=== PATIENT | female | born 1950 | race Caucasian/White ===

== ENCOUNTER → 2019-09-02 07:57 | Outpatient (CLI) | payer MEDICARE, SELFPAY ==
--- NOTE | ~2019-09-02 | US_ITS ---
EXAMINATION: US abdomen complete DATE: 09/02/2019 08:21 INDICATION: Right upper quadrant pain TECHNIQUE: Multiple grayscale and Doppler ultrasound images of the abdomen were obtained. COMPARISON: None available FINDINGS: The head, body, and tail of the pancreas are normal. There is a 1.2 x 1.1 x 1.8 cm hyperec hoic lesion in the left hepatic lobe without evidence of internal vascularity. The liver is otherwise normal with normal echogenicity and echotexture. No surface nodularity. Normal hepatopetal flow in t he main portal vein. The gallbladder is normal with no abnormal wall thickening, pericholecystic flui d or stones. The normal common bile duct measures 3 mm. There was no sonographic Blake sign. The vis ualized portions of the aorta and inferior vena cava are normal. The right kidney measures 9.8 x 4.1 x 5.5 cm. The left kidney measures 10.4 x 4.6 x 4.4 cm. The kidne ys demonstrate normal parenchymal echogenicity. There is no hydronephrosis. The spleen is normal in a ppearance and measures 7.4 cm. IMPRESSION: 1. No sonographic correlate for the patient's symptoms. 2. 1.8 cm hyperechoic lesion of the left hepatic lobe, likely benign in the absence of known malignan cy. Reviewed, dictated and finalized at location A. UCT SUPPORT TECHNICIAN IMPRESSION: 1. No sonographic correlate for the patient's symptoms. 2. 1.8 cm hyperechoic lesion of the left hepatic lobe, likely benign in the abs ence of known malignancy.
== END ==
PROVIDERS: PCP Family Medicine; Visit Provider Family Medicine
DX: R10.11 Right upper quadrant pain (principal)
CPT/HCPCS: 76700

== ENCOUNTER 2019-09-15 07:02 | Outpatient (CLI) | payer MEDICARE, SELFPAY ==
--- NOTE | ~2019-09-15 | NM_ITS ---
EXAMINATION: NM hepatobiliary w pharm DATE: 09/15/2019 09:20 INDICATION: Unspecified abdominal pain. COMPARISON: Ultrasound 09/02/2019 TECHNIQUE: 5.3 mCi Tc-99m mebrofenin (Choletec) was administered intravenously. Scintigraphic images of the abdomen were obtained for one hour. Then, 1.2 mcg sincalide (Kinevac) IV was administered, an d imaging was continued for 30 minutes. FINDINGS: There is normal clearance of radiotracer from the blood pool. There is homogeneous tracer u ptake by the liver. Activity progresses to the bowel and gallbladder. Gallbladder ejection fraction (GBEF) was 72%. Note that most patients with gallbladder dysfunction have GBEF < 35%, which overlaps with the broad normal range of 10-90%. IMPRESSION: 1. Normal hepatobiliary scintigraphy. Reviewed, dictated and finalized at location A. WRITER
== END 2019-09-15 07:03 | disposition home or self-care (01) ==
LOC: ANHIMG 07:07
PROVIDERS: PCP Family Medicine; Visit Provider Family Medicine
DX: R10.9 Unspecified abdominal pain (principal)
CPT/HCPCS: 78227; A9537; J2805

== ENCOUNTER 2019-10-25 18:31 | Emergency (ER) | payer MEDICARE, SELFPAY ==
--- NOTE | ~2019-10-25 | XR_ITS ---
EXAMINATION: XR knee LT 3V DATE: 10/25/2019 18:43 INDICATION: Left knee pain TECHNIQUE: Three views of the left knee were obtained. COMPARISON: None. FINDINGS: Alignment is normal. No fracture or osteochondral lesion. There is mild tricompartmental os teoarthritis characterized by tiny marginal osteophytes. No joint effusion/synovitis. Soft tissues a re unremarkable. IMPRESSION: 1. No acute osseous abnormality. Reviewed, dictated and finalized at location A.
[2019-10-25 18:33] VITALS: BP 148/64; PULSE 93; RESP 18; TEMP 36.4; O2SAT 97
--- NOTE | 2019-10-25 18:38 | ED.GENADULT ---
HPI - General Adult General Chief complaint: Extremity Injury, Lower Stated complaint: left knee pain Time Seen by Provider: 10/25/19 18:34 Source: patient Mode of arrival: ambulatory Limitations: no limitations History of Present Illness HPI narrative: Patient is a 69-year-old female who presents with left knee pain noting that she was ambulating and felt a pop in the left knee with resultant aching pain in the knee joint has had pain in this knee prior denies other injuries or complaints does not take anything for her symptoms presents in no distress Related Data Home Medications Medication Instructions Recorded Confirmed metformin 500 mg tablet 500 mg PO BID tablet 07/16/19 milnacipran 50 mg tablet 50 mg PO BID 07/16/19 omeprazole 40 mg capsule,delayed 40 mg PO DAILY 07/16/19 release rosuvastatin 5 mg tablet 5 mg PO DAILY 07/16/19 acetaminophen 500 mg capsule 500 mg PO Q6H PRN 07/23/19 aspirin 81 mg tablet,delayed 81 mg PO DAILY 07/23/19 release cyanocobalamin (vitamin B-12) 500 500 mcg PO BID tablet 07/23/19 mcg tablet Allergies Allergy/AdvReac Type Severity Reaction Status Date / Time diclofenac Allergy Unknown unknown Verified 10/25/19 18:35 dimenhydrinate [Dramamine] Allergy Unknown unknown Verified 10/25/19 18:35 meclizine Allergy Unknown unknown Verified 10/25/19 18:35 metformin Allergy Unknown Nausea Verified 10/25/19 18:35 Sulfa (Sulfonamide Allergy Unknown Unknown Verified 10/25/19 18:35 Antibiotics) STEROIDS AdvReac Intermediate FACIAL Uncoded 10/25/19 18:35 DERMATITIS Review of Systems Review of Systems: Narrative: CONSTITUTIONAL: Denies chills, or sweats. SKIN: Denies bruising or swelling MUSCULOSKELETAL: Positive for left knee pain NEUROLOGIC: Denies numbness, or weakness. PMFSH Past Medical History Medical History Hypodense mass of liver () 1.8cm hypoechoic mass considered benign Restless legs syndrome Social History Social History Smoking status: Never smoker Alcohol intake: never Exam Narrative: Exam Narrative: GENERAL: Well-appearing, well-nourished, and in no acute distress. HEAD: Normocephalic, atraumatic. EXTREMITIES: Tenderness of the left knee no deformity noted SKIN: Warm, dry, no rash. NEURO: No focal deficits. Alert and oriented x3. Neurovascularly intact PSYCH: Normal mood and affect. Course Course Emergency Course: Patient in the room in no distress aware of case findings treatment plan and diagnosis agreeing to follow-up as directed Vital Signs Vital signs: Vital Signs Temperature 97.5 F L 10/25/19 18:33 Pulse Rate 93 10/25/19 18:33 Respiratory Rate 18 10/25/19 18:33 Blood Pressure 148/64 H 10/25/19 18:33 Pulse Oximetry 97 10/25/19 18:33 Temperature 97.5 F L 10/25/19 18:33 Pulse Rate 93 10/25/19 18:33 Respiratory Rate 18 10/25/19 18:33 Blood Pressure 148/64 H 10/25/19 18:33 Pulse Oximetry 97 10/25/19 18:33 Medical Decision Making MDM Narrative Medical decision making narrative: Patients injury or pain is consistent with musculoskeletal etiology. No signs of neurological or vascular compromise on exam. Compartments and tisues are soft without signs of compartment syndrome. Pain is felt appropriate for further evaluation on an outpatient basis. Vital Signs Vital Signs: Vital Signs Temperature 97.5 F L 10/25/19 18:33 Pulse Rate 93 10/25/19 18:33 Respiratory Rate 18 10/25/19 18:33 Blood Pressure 148/64 H 10/25/19 18:33 Pulse Oximetry 97 10/25/19 18:33 Temperature 97.5 F L 10/25/19 18:33 Pulse Rate 93 10/25/19 18:33 Respiratory Rate 18 10/25/19 18:33 Blood Pressure 148/64 H 10/25/19 18:33 Pulse Oximetry 97 10/25/19 18:33 Discharge Plan Discharge Clinical Impression: Acute pain of left knee Patient Disposition: Home, Self-Care Conditi
== END 2019-10-25 19:07 | disposition home or self-care (01) ==
PROVIDERS: Emergency Provider Emergency Medicine; PCP Family Medicine
DX: M25.562 Pain in left knee (principal); G25.81 Restless legs syndrome; Z79.84 Long term (current) use of oral hypoglycemic drugs; Z79.82 Long term (current) use of aspirin
CPT/HCPCS: 73562; 99283

== ENCOUNTER 2020-01-04 08:22 | Outpatient (CLI) | payer MEDICARE, SELFPAY ==
--- NOTE | ~2020-01-04 | US_ITS ---
US right upper quadrant INDICATION: Follow-up liver mass. PROCEDURE: Realtime right upper abdominal ultrasound. COMPARISON: Ultrasound dated 09/02/2019 FINDINGS: The pancreas is normal without focal mass or pancreatic ductal dilation. There is a hypere choic mass of the liver measuring 2 x 1.7 x 0.8 cm possibly slightly increased in size compared with prior examination. Correlation with dynamic contrast-enhanced CT or MRI is recommended. There is norm al directional flow in the portal vein. The gallbladder is normal without stones, gallbladder wall thickening or pericholecystic fluid. Comm on bile duct measures 4 mm. No sonographic Blake's sign. IMPRESSION: 1: Possible enlargement of hyperechoic liver mass near the kristi hepatis measuring 2.0 x 1.7 x 0.8 cm compared with 1.8 x 1.2 x 1.1 cm on prior study. Consider correlation with dynamic contrast-enhanced CT or MRI. Reviewed, dictated and finalized at location A. IMPRESSION: 1: Possible enlargement of hyperechoic liver mass near the kristi hepatis measur ing 2.0 x 1.7 x 0.8 cm compared with 1.8 x 1.2 x 1.1 cm on prior study. Conside r correlation with dynamic contrast-enhanced CT or MRI.
== END 2020-01-04 08:23 | disposition home or self-care (01) ==
PROVIDERS: PCP Family Medicine; Visit Provider Family Medicine
DX: R16.0 Hepatomegaly, not elsewhere classified (principal)
CPT/HCPCS: 76705

== ENCOUNTER 2020-01-29 09:34 | Outpatient (CLI) | payer MEDICARE, SELFPAY ==
--- NOTE | ~2020-01-29 | MR_ITS ---
EXAMINATION: MR abdomen wo/w con DATE: 01/29/2020 10:59 INDICATION: Enlarging hyperechoic liver lesion on prior ultrasound TECHNIQUE: Magnetic resonance imaging (MRI) of the abdomen was performed without and with 12 mL Multi moose intravenous contrast. Sequences included coronal T2-weighted SS-FSE, coronal and axial FS 2D-F IESTA, axial STIR FSE, axial T2-weighted SS-FSE, axial T2-weighted FS SS-FSE, axial diffusion-weighte d SE, axial dual-echo T1-weighted FSPGR, and axial and coronal T1-weighted LAVA. Postcontrast axial T 1-weighted LAVA images were obtained in a time course. Postcontrast coronal T1-weighted LAVA images w ere obtained. COMPARISON: None. FINDINGS: Heart size is normal. No pericardial or pleural effusion. There is approximately 1.9 x 1.1 cm region of focal hepatic steatosis corresponding in location and configuration to the hyperechoic lesion on p rior ultrasound in segment IVb of the liver abutting the kristi hepatis which demonstrates decreased s ignal on fat saturated images and on opposed phase images. No other hepatic lesions identified. Gallb ladder is normal. No intra or extra hepatic biliary ductal dilation. Pancreas, spleen, bilateral adre nal glands and kidneys are normal. Layering air-fluid level within a 2.5 cm diverticulum arising from the fundus of the stomach. Visual is portions of the bowels are unremarkable. No pathologically enla rged abdominal lymphadenopathy. Mild lumbar spondylosis. Normal bone marrow signal throughout. IMPRESSION: 1. Hepatic lesion of concern on prior ultrasound corresponds to a 1.9 x 1.1 cm region of focal hepati c steatosis in segment IVb of the liver. Reviewed, dictated and finalized at location A. IMPRESSION: 1. Hepatic lesion of concern on prior ultrasound corresponds to a 1.9 x 1.1 cm region of focal hepatic steatosis in segment IVb of the liver.
[2020-01-29 10:49] LABS: Estimated Glomerular Filt Rate > 60
== END 2020-01-29 09:35 | disposition home or self-care (01) ==
LOC: ANHIMG 09:34
PROVIDERS: PCP Family Medicine; Visit Provider Family Medicine
DX: R16.0 Hepatomegaly, not elsewhere classified (principal)
CPT/HCPCS: 36415; 74183; A9577

== ENCOUNTER 2020-06-17 14:23 | Outpatient (CLI) | payer MEDICARE, SELFPAY ==
--- NOTE | ~2020-06-17 | MM_ITS ---
EXAMINATION: MM screening [facility] BI w elle HISTORY: Screening mammogram TECHNIQUE: Craniocaudal and mediolateral oblique 3-D tomosynthesis images were obtained and synthetic 2-D images were generated. CAD analysis was submitted and interpreted. COMPARISON: 05/01/2019, 04/24/2018, 04/18/2017 BREAST PARENCHYMAL COMPOSITION: There are scattered areas of fibroglandular density. FINDINGS: Scattered benign-appearing calcifications are present. There is no evidence of suspicious m ass, calcification, or architectural distortion to suggest malignancy in either breast. There has bee n no suspicious interval change. IMPRESSION: 1. No mammographic evidence of malignancy. 2. Recommend routine screening mammography in one year. BI-RADS Category 2: Benign finding(s). Reviewed, dictated and finalized at location A.
--- NOTE | ~2020-06-17 | DEXA_ITS ---
Bone Density Report Name: Gem Hearn Age: 70 Sex: Female Ethnicity: White Date of : 1950 Indication: postmenopausal; hysterectomy; Referring Provider: Yovany Gallegos Study: Bone densitometry was performed. Exam Date: June 17, 2020 Accession number: [id number] Bone Density: Region BMD T-score Z-score Classification AP Spine (L1-L4) 1.117 0.6 2.9 Normal Femoral Neck (Left) 0.735 -1.0 0.9 Normal Total Hip (Left) 0.851 -0.7 0.9 Normal Total Hip Bilateral Avg 0.861 -0.7 0.9 Normal Femoral Neck (Right) 0.719 -1.2 0.7 Osteopenia Total Hip (Right) 0.869 -0.6 1.0 Normal World Health Organization criteria for BMD impression classify patients as: Normal (T-score at or above -1.0), Osteopenia (T-score between -1.0 and -2.5), or Osteoporosis (T-score at or below -2.5). 10-year Fracture Risk(1): Major Osteoporotic Fracture 9.8% Hip Fracture 1.3% Reported Risk Factors: [place] (), Neck BMD=0.719, BMI=26.1 (1) FRAX(R) Version 3.08. Fracture probability calculated for an untreated patient. Fracture probability may be lower if the patient has received treatment. Previous Exams: Region Exam Age BMD T-score BMD Change BMD Change Date g/cm2 vs Baseline vs Previous AP Spine(L1-L4) 06/17/2020 70 1.117 0.6 -0.061(-5.2%)# 0.005(0.4%)# 10/20/2010 60 1.112 0.6 -0.066(-5.6%)* -0.066(-5.6%)* 05/09/2003 52 1.178 1.2 Total Hip(Left) 06/17/2020 70 0.851 -0.7 -0.142(-14.3%) -0.091(-9.7%)# 10/20/2010 60 0.942 0.0 -0.051(-5.1%)* -0.051(-5.1%)* 05/09/2003 52 0.993 0.4 Total Hip(Right) 06/17/2020 70 0.869 -0.6 N/A -1.8%# 10/20/2010 60 0.885 -0.5 N/A N/A 05/09/2003 52 N/A N/A *Denotes significance at 95% confidence level, LSC for AP Spine = 0.022 g/cm2, LSC for Total Hip = 0.027 g/cm2 Clinical Information Provided by Patient: Has the following medical conditions: Hysterectomy Patient maximum height was 59 Menopause Age: 38 No regular weight bearing exercise Drinks caffeinated beverages Onset of menses at age 12 Number of children 3 Impression: The patient has low bone mass, based on the Right Femoral Neck T-score. The patient has an estimated ten-year risk of hip fracture of 1.3% and an estimated ten-year risk of major fracture of 9.8%, based on the WHO FRAX algorithm. No significant bone loss was observed. Discussion: BONE DENSITY IS LOW AT ONE OR
== END 2020-06-17 14:24 | disposition home or self-care (01) ==
LOC: ANHIMG 14:28
PROVIDERS: PCP Family Medicine; Visit Provider Physician Assistant
DX: Z12.31 Encounter for screening mammogram for malignant neoplasm of breast (principal); Z13.820 Encounter for screening for osteoporosis; Z78.0 Asymptomatic menopausal state; M85.851 Other specified disorders of bone density and structure, right thigh; R73.03 Prediabetes; E78.2 Mixed hyperlipidemia; I10 Essential (primary) hypertension; Z51.81 Encounter for therapeutic drug level monitoring; Z79.899 Other long term (current) drug therapy
CPT/HCPCS: 77063; 77067; 77080

== ENCOUNTER 2020-10-18 08:34 | Outpatient (CLI) | payer MEDICARE, SELFPAY ==
--- NOTE | ~2020-10-18 | US_ITS ---
EXAMINATION: US abdomen limited DATE: 10/18/2020 09:13 INDICATION: Follow-up liver lesion TECHNIQUE: Multiple grayscale and Doppler ultrasound images of the abdomen were obtained. COMPARISON: Ultrasound dated 01/04/[address] dated 01/29/2020 FINDINGS: The pancreatic head and body are normal in appearance. The pancreatic tail is not visualized. Sli ght increase in size of a lenticular region of increased hepatic echogenicity along the kristi hepatis which currently measures 3.2 x 2.4 x 1.0 cm, increased from 2.0 x 1.7 x 0.8 cm on the prior study an d with MRI appearance on prior study most consistent with focal hepatic steatosis. No other hepatic l esions identified. Liver has normal echogenicity and contour, with a smooth surface. No intrahepatic biliary duct dilation suspected. Portal venous flow was seen in the hepatopetal, normal direction and has normal Doppler waveform. The gallbladder is normal in appearance. There is no cholelithiasis. T he common bile duct measures 4 mm, which is normal. Sonographic Blake sign was reported as negative by the specification consultant. IMPRESSION: 1. Slight decrease in size of a 3.2 x 2.4 x 1.0 cm hypoechoic region along the gallbladder fossa with prior MRI appearance most consistent with focal hepatic steatosis. Reviewed, dictated and finalized at location B.
== END 2020-10-18 08:35 | disposition home or self-care (01) ==
PROVIDERS: PCP Family Medicine; Visit Provider Family Medicine
DX: R16.0 Hepatomegaly, not elsewhere classified (principal)
CPT/HCPCS: 76705

== ENCOUNTER 2021-03-29 01:55 | Day surgery (SDC) | payer MEDICARE, SELFPAY ==
[2021-03-18 09:05] VITALS: BMI 25.8
--- NOTE | 2021-03-28 13:24 | WPDANESEPPF ---
Anes - Initial Pre Proc Eval Procedure: Operation Date: 03/29/21 09:30 Proposed Procedures p Screening Colonoscopy - Deni Simental MD Date/Time: 03/28/21 13:24 Surgeon: Deni Simental MD Pre Op Diagnosis: hx of colon polyps Patient Data Age: 70 Gender: F Height: 1.5 m Weight: 58 kg Allergies Allergy/AdvReac Type Severity Reaction Status Date / Time diclofenac Allergy Unknown unknown Verified 03/29/21 08:21 dimenhydrinate [Dramamine] Allergy Unknown unknown Verified 03/29/21 08:21 meclizine Allergy Unknown unknown Verified 03/29/21 08:21 Sulfa (Sulfonamide Allergy Unknown Unknown Verified 03/29/21 08:21 Antibiotics) STEROIDS AdvReac Intermediate FACIAL Uncoded 03/29/21 08:21 DERMATITIS Home Medications Medication Instructions Recorded Confirmed Type aspirin 81 mg tablet,delayed 81 mg PO DAILY 07/23/19 03/29/21 History release metformin 500 mg tablet,extended 500 mg PO BID #180 tablet 04/27/20 03/29/21 Rx release 24 hr omeprazole 40 mg capsule,delayed See Rx Instructions .ROUTE 11/24/20 03/29/21 Rx release .COMPLEX #90 cap rosuvastatin 5 mg tablet See Rx Instructions .ROUTE 01/18/21 03/29/21 Rx .COMPLEX #90 tablet acetaminophen [Tylenol Extra 1,000 mg PO DAILY PRN 03/18/21 03/29/21 History Strength] calcium carbonate-vitamin D2 1 tablet PO DAILY 03/18/21 03/29/21 History [Calcium + Vitamin D] lisinopril 20 mg tablet See Rx Instructions .ROUTE 03/22/21 03/29/21 Rx .COMPLEX #90 tablet metoprolol succinate 100 mg See Rx Instructions .ROUTE 03/22/21 Rx tablet,extended release 24 hr .COMPLEX #180 tablet milnacipran 50 mg tablet See Rx Instructions .ROUTE 03/22/21 03/29/21 Rx .COMPLEX #180 tablet sod picosulf-mag ox-citric ac 160 ml PO DAILY #1 ml 03/23/21 Rx [Clenpiq] Patient hx anesthesia problems: none Family hx anesthesia problems: none PMFSH Past Medical History Medical History (Updated 03/28/21 @ 13:25 by Omari Ortega DO) Diabetes type 2, controlled Essential hypertension Gastro-esophageal reflux disease with esophagitis Hypodense mass of liver () 1.8cm hypoechoic mass considered benign Mixed hyperlipidemia Restless legs syndrome Surgical History Surgical History (Updated 03/28/21 @ 13:25 by Omari Ortega DO) History of hysterectomy History of tubal ligation Family History Family History Father Diabetes mellitus Sibling Diabetes mellitus Other Family history of cardiovascular disease No family history of malignant neoplasm Social History Social History (Updated 02/08/21 @ 11:15 by Nica Bhatia [facility]) Alcohol intake: never Substance use: never Substance use type: does not use Living arrangements: with family Gender identity (if verbalized by the patient): Female Spiritual care concerns: No Anes - Eval Final PreProcedure Day of Procedure 03/28/21 13:24 Patient weight: overweight Heart: regular rate and rhythm Lungs: clear to auscultation and normal air movement Airway: Mallampati scale class II Neurological: alert and oriented Last oral intake: >/= 8 hours ASA classification: III Emergent: no Anesthetic plan: proceed Anesthesia type and monitoring: general GIVS and standard monitoring Informed Consent: The patient's anesthetic plan and its attendant risks and benefits were discussed with the patient/family/POA. Questions were solicited and answers provided to the satisfaction of the patient/family/POA.
[2021-03-29 08:18] LABS: Glucose Point of Care 94 mg/dl (65-105)
[2021-03-29] MEDS: LACTATED RINGERS 1,000 ML 150 ML IV CONT (08:30)
[2021-03-29 08:31] VITALS: BP 163/64; PULSE 86; RESP 14; TEMP 35.9; O2SAT 100
--- NOTE | 2021-03-29 09:11 | WPDGICN ---
Assessment and Plan Assessment and plan (1) History of colon polyps: Code(s): Z86.010 - Personal history of colonic polyps Status: Acute Assessment and Plan: Patient has a prior history of colon polyps for this reason screening colonoscopy is recommended. further recommendations will be given after endoscopy. GI Consult Note Consult date/time: 03/29/21 09:11 HPI: Gem Hearn is a 70 year old female Presents for screening colonoscopy. Patient has a prior history of colon polyps. Most recent colonoscopy was 2015. She had colon polyps in 2010. Family history is noncontributory. Patient reports that her current weight appetite bowel movements are normal. She presents today for screening colonoscopy. Review of Systems Review of Systems: All systems reviewed & are unremarkable except as noted in HPI and below PMFSH Past Medical History Medical History (Updated 03/28/21 @ 13:25 by Omari Ortega DO) Diabetes type 2, controlled Essential hypertension Gastro-esophageal reflux disease with esophagitis Hypodense mass of liver () 1.8cm hypoechoic mass considered benign Mixed hyperlipidemia Restless legs syndrome Surgical History Surgical History (Updated 03/28/21 @ 13:25 by Omari Ortega DO) History of hysterectomy History of tubal ligation Family History Family History Father Diabetes mellitus Sibling Diabetes mellitus Other Family history of cardiovascular disease No family history of malignant neoplasm Social History Social History (Updated 02/08/21 @ 11:15 by Nica Bhatia CMA) Alcohol intake: never Substance use: never Substance use type: does not use Living arrangements: with family Gender identity (if verbalized by the patient): Female Spiritual care concerns: No Meds Home Medications and Allergies Home Medications Medication Instructions Recorded Confirmed Type aspirin 81 mg tablet,delayed 81 mg PO DAILY 07/23/19 03/29/21 History release metformin 500 mg tablet,extended 500 mg PO BID #180 tablet 04/27/20 03/29/21 Rx release 24 hr omeprazole 40 mg capsule,delayed See Rx Instructions .ROUTE 11/24/20 03/29/21 Rx release .COMPLEX #90 cap rosuvastatin 5 mg tablet See Rx Instructions .ROUTE 01/18/21 03/29/21 Rx .COMPLEX #90 tablet acetaminophen [Tylenol Extra 1,000 mg PO DAILY PRN 03/18/21 03/29/21 History Strength] calcium carbonate-vitamin D2 1 tablet PO DAILY 03/18/21 03/29/21 History [Calcium + Vitamin D] lisinopril 20 mg tablet See Rx Instructions .ROUTE 03/22/21 03/29/21 Rx .COMPLEX #90 tablet metoprolol succinate 100 mg See Rx Instructions .ROUTE 03/22/21 Rx tablet,extended release 24 hr .COMPLEX #180 tablet milnacipran 50 mg tablet See Rx Instructions .ROUTE 03/22/21 03/29/21 Rx .COMPLEX #180 tablet sod picosulf-mag ox-citric ac 160 ml PO DAILY #1 ml 03/23/21 Rx [Clenpiq] Allergies Allergy/AdvReac Type Severity Reaction Status Date / Time diclofenac Allergy Unknown unknown Verified 03/29/21 08:21 dimenhydrinate [Dramamine] Allergy Unknown unknown Verified 03/29/21 08:21 meclizine Allergy Unknown unknown Verified 03/29/21 08:21 Sulfa (Sulfonamide Allergy Unknown Unknown Verified 03/29/21 08:21 Antibiotics) STEROIDS AdvReac Intermediate FACIAL Uncoded 03/29/21 08:21 DERMATITIS Vital Signs Vital Signs - 24 hr 03/29/21 08:31 Temperature 96.7 F L Pulse Rate 86 Respiratory Rate 14 Blood Pressure 163/64 H Pulse Oximetry 100 Exam Narrative: Physical exam reveals patient be alert. Vital signs are stable. HEENT exam is unremarkable. Patient is anicteric. Lungs are clear to auscultation and percussion. Heart is without murmur or extra sounds. Abdominal exam bowel sounds are present soft nontender with no organomegaly. Digital external rectal exam is normal.
[2021-03-29 10:08] VITALS: BP 127/52; PULSE 83; RESP 22; O2SAT 100
[2021-03-29 10:18] VITALS: BP 139/59; PULSE 82; RESP 19; O2SAT 100
[2021-03-29 10:28] VITALS: BP 160/77; PULSE 79; RESP 21; O2SAT 100
== END 2021-03-29 10:49 | disposition home or self-care (01) ==
PROVIDERS: PCP Family Medicine; Visit Provider Internal Medicine Gastroenterology
PROC: 0DJD8ZZ Inspection of Lower Intestinal Tract, Via Natural or Artificial Opening Endoscopic (ICD-10-PCS; CPT 45378; principal; 2021-03-29 09:30)
DX: Z12.11 Encounter for screening for malignant neoplasm of colon (principal); K57.30 Diverticulosis of large intestine without perforation or abscess without bleeding; E11.9 Type 2 diabetes mellitus without complications; I10 Essential (primary) hypertension; K21.00 Gastro-esophageal reflux disease with esophagitis, without bleeding; R16.0 Hepatomegaly, not elsewhere classified; E78.5 Hyperlipidemia, unspecified; G25.81 Restless legs syndrome; Z79.82 Long term (current) use of aspirin; Z79.84 Long term (current) use of oral hypoglycemic drugs
CPT/HCPCS: G0105; 82948; J2001; J2704; J7120

== ENCOUNTER 2021-07-19 09:05 | Outpatient (CLI) | payer MEDICARE, SELFPAY ==
--- NOTE | ~2021-07-19 | MM_ITS ---
EXAMINATION: MM screening [facility] BI w elle HISTORY: Screening mammogram TECHNIQUE: Craniocaudal and mediolateral oblique 3-D tomosynthesis images were obtained and synthetic 2-D images were generated. CAD analysis was submitted and interpreted. COMPARISON: 06/17/2020, 05/01/2019, 04/24/2018 BREAST PARENCHYMAL COMPOSITION: There are scattered areas of fibroglandular density. FINDINGS: Scattered benign-appearing calcifications are present. There is no evidence of suspicious m ass, calcification, or architectural distortion to suggest malignancy in either breast. There has bee n no suspicious interval change. IMPRESSION: 1. No mammographic evidence of malignancy. 2. Recommend routine screening mammography in one year. BI-RADS Category 2: Benign finding(s). Reviewed, dictated and finalized at location A. OMIC ADVISER
== END 2021-07-19 09:06 | disposition home or self-care (01) ==
LOC: ANHIMG 09:06
PROVIDERS: PCP Family Medicine; Visit Provider Family Medicine
DX: Z12.31 Encounter for screening mammogram for malignant neoplasm of breast (principal)
CPT/HCPCS: 77063; 77067

== ENCOUNTER 2021-09-06 10:50 | Emergency (ER) | payer MEDICARE, SELFPAY ==
[2021-09-06 11:02] VITALS: BP 151/56; PULSE 78; RESP 18; TEMP 36.6; O2SAT 100
--- NOTE | 2021-09-06 11:43 | ED.BACK ---
HPI - Back Pain/Injury General Chief Complaint: Back Pain/Injury Stated Complaint: Back Pain Time Seen by Provider: 09/06/21 11:43 Source: patient, RN notes reviewed and old records reviewed Mode of arrival: ambulatory Limitations: no limitations History of Present Illness HPI Narrative: 71-year-old female presents to the [facility] with complaints of back pain. To the right mid upper back pain from about 3 weeks. Patient states she is taken Tylenol with no relief. Had something similar in the past. States the doctor prescribed a muscle relaxer. Pain is worse with movement especially twisting. MD elicited complaint: back pain Related Data Home Medications Medication Instructions Recorded Confirmed aspirin 81 mg tablet,delayed 81 mg PO DAILY 07/23/19 03/29/21 release acetaminophen [Tylenol Extra 1,000 mg PO DAILY PRN 03/18/21 03/29/21 Strength] calcium carbonate-vitamin D2 1 tablet PO DAILY 03/18/21 03/29/21 [Calcium + Vitamin D] Allergies Allergy/AdvReac Type Severity Reaction Status Date / Time diclofenac Allergy Unknown unknown Verified 03/29/21 08:21 dimenhydrinate [Dramamine] Allergy Unknown unknown Verified 03/29/21 08:21 meclizine Allergy Unknown unknown Verified 03/29/21 08:21 Sulfa (Sulfonamide Allergy Unknown Unknown Verified 03/29/21 08:21 Antibiotics) STEROIDS AdvReac Intermediate FACIAL Uncoded 03/29/21 08:21 DERMATITIS Review of Systems Review of Systems: All systems reviewed & are unremarkable except as noted in HPI and below Constitutional: Constitutional: Reports no additional constitutional complaints, Denies chills and Denies fever(s) Eyes: Eyes: Reports no additional eye complaints Cardiovascular: Cardiovascular: Reports no additional cardiovascular complaints and Denies chest pain Respiratory: Respiratory: Reports no additional respiratory complaints, Denies cough and Denies dyspnea Gastrointestinal: Gastrointestinal: Reports no additional gastrointestinal complaints, Denies abdominal pain, Denies nausea and Denies vomiting Genitourinary: Genitourinary: Reports no additional female genitourinary complaints, Denies hematuria, Denies dysuria, Denies flank pain and Denies urinary incontinence Musculoskeletal: Musculoskeletal: Reports as per HPI and Reports back pain (Right scapular area) Integumentary/Breasts: Skin/Breast: Reports system reviewed and no additional complaints, except as docu Neurologic: Reports system reviewed and no additional complaints, except as documented Psychiatric: Psychiatric: Reports no additional psychiatric complaints Allergic/Immunologic: Allergic/Immunologic: Reports no additional allergic/immunologic complaints [facility] Past Medical History Medical History (Updated 09/06/21 @ 11:56 by Elodia Moreland) Diabetes type 2, controlled Essential hypertension Gastro-esophageal reflux disease with esophagitis Hypodense mass of liver () 1.8cm hypoechoic mass considered benign Mixed hyperlipidemia Restless legs syndrome Surgical History Surgical History History of hysterectomy History of tubal ligation Family History Family History Father Diabetes mellitus Sibling Diabetes mellitus Other Family history of cardiovascular disease No family history of malignant neoplasm Social History Social History Alcohol intake: never Substance use: never Substance use type: does not use Gender identity (if verbalized by the patient): Female Spiritual care concerns: No Comments At the time of my signature, I reviewed and agree with the nursing past medical, surgical, social, and family history. There is no relevant family history pertinent to the patient complaint. Exam Const: General: healthy appearing, no acute distress and alert Nutritional Appearance: well nourished Orientation
== END 2021-09-06 12:00 | disposition home or self-care (01) ==
PROVIDERS: Emergency Provider Nurse Practitioner; PCP Family Medicine
DX: S29.012A Strain of muscle and tendon of back wall of thorax, initial encounter (principal); X58.XXXA Exposure to other specified factors, initial encounter; E11.9 Type 2 diabetes mellitus without complications; I10 Essential (primary) hypertension; K21.9 Gastro-esophageal reflux disease without esophagitis; E78.2 Mixed hyperlipidemia; G25.81 Restless legs syndrome
CPT/HCPCS: 99213; G0463

== ENCOUNTER → 2021-09-28 14:50 | Outpatient (CLI) | payer MEDICARE, SELFPAY ==
--- NOTE | ~2021-09-28 | XR_ITS ---
EXAMINATION: XR wrist LT w scaphoid DATE: 09/28/2021 15:08 INDICATION: Left wrist effusion. Left wrist pain. TECHNIQUE: 5 views of left wrist were obtained. COMPARISON: Left wrist radiographs 04/28/2014 FINDINGS: Bone alignment is normal. No fracture. A chronic 10 mm nonaggressive lytic lesion in lunate may be an intraosseous ganglion, subchondral cyst, or enchondroma. There is moderate osteoarthritis of triscaphe joint and mild osteoarthritis of first carpometacarpal joint. IMPRESSION: 1. Polyarticular osteoarthritis. 2. Chronic nonaggressive lytic lesion in lunate, which may be an intraosseous ganglion, subchondral c yst, or enchondroma. Reviewed, dictated and finalized at location A. PTIONIST SECRETARY IMPRESSION: 1. Polyarticular osteoarthritis. 2. Chronic nonaggressive lytic lesion in lunate, which may be an intraosseous g anglion, subchondral cyst, or enchondroma.
== END ==
PROVIDERS: PCP Family Medicine; Visit Provider Family Medicine
DX: M25.432 Effusion, left wrist (principal); M19.032 Primary osteoarthritis, left wrist
CPT/HCPCS: 73110

== ENCOUNTER 2022-09-08 15:30 | Emergency (ER) | payer MEDICARE, SELFPAY ==
--- NOTE | ~2022-09-08 | CT_ITS ---
EXAMINATION: CT brain wo con DATE: 09/08/2022 17:52 INDICATION: Head injury. TECHNIQUE: Computed tomography (CT) of the head was performed without intravenous contrast. The mA wa s adjusted according to patient size. Iterative reconstruction technique was employed. The dose-lengt h product was 605.33 mGy-cm. COMPARISON: None FINDINGS: There is no intracranial hemorrhage, acute infarction, or abnormal intracranial mass lesion . The ventricles are normal in size. The orbits are normal. The paranasal sinuses are clear. The mast oid air cells are normal. IMPRESSION: 1. Normal brain. Reviewed, dictated and finalized at location A. RY ASSISTANT IMPRESSION: 1. Normal brain.
--- NOTE | ~2022-09-08 | XR_ITS ---
EXAMINATION: XR ribs RT 2V w CXR 2V INDICATION: Right chest pain after fall TECHNIQUE: Frontal and lateral views of the chest and 3 views of the right ribs were obtained. COMPARISON: None. FINDINGS: The lungs are free of acute opacities. No pleural effusion or pneumothorax. The cardiomedia stinal silhouette is normal. There is moderate thoracic spondylosis. No displaced rib fracture is scarlett ntified. IMPRESSION: 1. No acute cardiopulmonary abnormality or evidence of displaced rib fracture. Reviewed, dictated and finalized at location B. NGER
--- NOTE | ~2022-09-08 | CT_ITS ---
EXAMINATION: CT cervical spine wo con DATE: 09/08/2022 17:55 INDICATION: Head injury. TECHNIQUE: Computed tomography (CT) of the cervical spine was performed without intravenous contrast. Automated exposure control and iterative reconstruction technique were employed. The dose-length pro duct was 133.32 mGy-cm. COMPARISON: None FINDINGS: There is a 7 mm nodule in right thyroid lobe, likely not clinically significant. There is m ild scarring at the lung apices. There is 4 degrees levocurvature of cervical spine. Vertebral body h eights are normal. There is mildly decreased disc height at C4-C5 and C5-C6. The following disc level s are specifically discussed: C2-C3: There is no uncovertebral joint osteoarthritis. There is severe right and moderate left facet joint osteoarthritis. There is mild right neural foraminal stenosis. There is no central canal stenos is. C3-C4: There is mild bilateral uncovertebral joint osteoarthritis. There is severe bilateral facet kaleb int osteoarthritis. There is mild bilateral neural foraminal stenosis. There is mild central canal st enosis. C4-C5: There is no uncovertebral joint osteoarthritis. There is severe bilateral facet joint osteoart hritis. There is moderate right and mild left neural foraminal stenosis. There is no central canal st enosis. C5-C6: There is mild bilateral uncovertebral joint osteoarthritis. There is severe bilateral facet kaleb int osteoarthritis. There is mild bilateral neural foraminal stenosis. There is no central canal sten osis. C6-C7: There is no uncovertebral joint osteoarthritis. There is severe right and mild left facet join t osteoarthritis. There is mild right neural foraminal stenosis. There is no central canal stenosis. C7-T1: There is no uncovertebral joint osteoarthritis. There is mild bilateral facet joint osteoarthr itis. There is no neural foraminal stenosis. There is mild central canal stenosis. IMPRESSION: 1. No fracture. 2. Mild cervical spondylosis. Reviewed, dictated and finalized at location A. K LOADER OVERHEAD CRANE
[2022-09-08 15:34] VITALS: BP 163/66; PULSE 75; RESP 17; TEMP 36.2; O2SAT 99
--- NOTE | 2022-09-08 17:57 | PC.NURSE ---
Patient off unit to CT.
--- NOTE | 2022-09-08 18:15 | ED.FALL ---
HPI - Fall General Chief Complaint: Fall Stated Complaint: fall, right side pain Time Seen by Provider: 09/08/22 17:40 Source: patient Mode of arrival: ambulatory Limitations: no limitations History of Present Illness HPI Narrative: Patient is a 72-year-old female who presents the ED status post fall. Patient reports she was at [facility] this afternoon unloading groceries into her car when she slipped on a small patch of ice and fell onto her right side. She did hit her head, but denied LOC. She complains of pain to her right ribs, worse with movements and coughing. She denies any difficulty breathing or chest pain. She denies any dizziness, lightheadedness, vision changes, nausea, vomiting, abdominal pain. Denies any other pain, denies hip pain, arm or shoulder pain. She was able to ambulate after the fall. Patient takes aspirin 81 mg daily, but is not on any blood thinners. Related Data Home Medications Medication Instructions Recorded Confirmed aspirin 81 mg tablet,delayed 81 mg PO DAILY 07/23/19 09/08/22 release acetaminophen 500 mg capsule 1,000 mg PO DAILY PRN Pain 03/18/21 09/08/22 calcium carb-ergocalciferol (vit 1 tablet PO DAILY 03/18/21 09/08/22 D2) 600 mg calcium-200 unit tablet Allergies Allergy/AdvReac Type Severity Reaction Status Date / Time dimenhydrinate [Dramamine] Allergy Unknown unknown Verified 09/08/22 17:45 meclizine Allergy Unknown unknown Verified 09/08/22 17:45 Sulfa (Sulfonamide Allergy Unknown Unknown Verified 09/08/22 17:45 Antibiotics) STEROIDS AdvReac Intermediate FACIAL Uncoded 09/08/22 17:45 DERMATITIS Review of Systems Review of Systems: CONSTITUTIONAL: Denies fever, chills, or sweats. EYES: Denies visual changes. CARDIOVASCULAR: Denies chest pain. RESPIRATORY: Denies dyspnea. GASTROINTESTINAL: Denies abdominal pain, nausea, vomiting. MUSCULOSKELETAL: See HPI. NEUROLOGIC: See HPI. All systems reviewed & are unremarkable except as noted in HPI and below PMFSH Past Medical History Medical History Essential hypertension Gastro-esophageal reflux disease with esophagitis Hypodense mass of liver focal hepatic steatosis Mixed hyperlipidemia Restless legs syndrome Shingles Surgical History Surgical History History of hysterectomy History of tubal ligation Family History Family History Father Diabetes mellitus Sibling Diabetes mellitus Other Family history of cardiovascular disease No family history of malignant neoplasm Social History Social History Smoking status: Never smoker Alcohol intake: never Substance use: never Substance use type: does not use Lack of Transportation: No Lack of Food: Never True Current Housing: I Have Housing Concerned About Future Housing: No Difficulty Paying Gas/Electric Bills: No Difficulty Paying for Meds: No Currently Unemployed: No Education: Decline to Answer Difficulty w/ Childcare or Family Care: No Living arrangements: with family Gender identity (if verbalized by the patient): Female Spiritual care concerns: No Exam Narrative: GENERAL: Well appearing, well-nourished, non-toxic, in no acute distress. HEAD: Normocephalic, atraumatic. No contusions. NECK: Supple. No adenopathy, no masses. No midline cervical spinal tenderness. RESPIRATORY: Airway patent, respirations nonlabored. Clear to auscultation bilaterally, no rales, rhonchi, wheezing. No splinting. CARDIOVASCULAR: Regular rate and rhythm without murmurs, rubs, or gallops. Peripheral pulses 2+ and equal bilaterally. ABDOMINAL: Soft, nontender, nondistended, no hepatosplenomegaly. Normoactive BS. MUSCULOSKELETAL: Moves all extremities. Strength/ROM intact without gross deformities. Ten
[2022-09-08] MEDS: NAPROXEN 250 MG TABLET PO (19:31)
== END 2022-09-08 19:30 | disposition home or self-care (01) ==
PROVIDERS: Emergency Provider Physician Assistant; PCP Family Medicine
DX: S09.90XA Unspecified injury of head, initial encounter (principal); S20.211A Contusion of right front wall of thorax, initial encounter; I10 Essential (primary) hypertension; K21.00 Gastro-esophageal reflux disease with esophagitis, without bleeding; E78.2 Mixed hyperlipidemia; G25.81 Restless legs syndrome; Z90.710 Acquired absence of both cervix and uterus; M47.812 Spondylosis without myelopathy or radiculopathy, cervical region; W00.0XXA Fall on same level due to ice and snow, initial encounter
CPT/HCPCS: 70450; 71046; 71100; 72125; 99284; A9270

== ENCOUNTER 2023-03-05 12:41 | Outpatient (CLI) | payer MEDICARE, SELFPAY ==
[2023-03-05 15:45] LABS: Kit Draw Collected
== END 2023-03-05 12:42 | disposition home or self-care (01) ==
LOC: ANHGOSHLAB 12:43
PROVIDERS: PCP Family Medicine; Visit Provider Family Medicine
DX: D64.9 Anemia, unspecified (principal)
CPT/HCPCS: 36415

== ENCOUNTER 2023-03-22 14:11 | Outpatient (CLI) | payer MEDICARE, SELFPAY ==
[2023-03-22 14:34] LABS: Basophils Percent Auto 0.4 % (0.2-1.2); Eosinophils Absolute Auto 0.3 K/mm3 (0-0.3); Eosinophils Percent Auto 2.7 % (0-4.4); Hematocrit 33.2 % (37.0-47.0); Hemoglobin 10.9 g/dL (12.0-15.0); Immature Granulocyte Absolute 0.02 K/mm3 (0.00-0.031); Immature Granulocyte Percent A 0.2 % (0-0.5); Lymphocytes Absolute Auto 3.11 K/mm3 (0.9-3.2); Lymphocytes Percent Auto 30.1 % (18.3-44.2); Mean Corpuscular HGB Conc 32.8 g/dl (32-36); Mean Corpuscular Hemoglobin 28.9 pg (26-34); Mean Corpuscular Volume 88.1 fl (80-100); Monocytes Absolute Auto 0.8 K/mm3 (0.1-0.6); Monocytes Percent Auto 7.9 % (2.6-8.5); Neutrophils Absolute Auto 6.1 K/mm3 (1.3-6.7); Neutrophils Percent Auto 58.7 % (45.5-73.1); Platelet Count Result 440 k/mm3 (150-375); Red Blood Count 3.77 M/mm3 (4.2-5.4); Red Cell Distribution Width 13.2 % (11.5-14.5); White Blood Count 10.3 K/mm3 (4.5-10.0)
[2023-03-22 16:42] LABS: Iron 84 ug/dL (37-170)
[2023-03-22 16:43] LABS: Alanine Aminotransferase 18 U/L (6-35); Albumin Level 4.7 g/dL (3.5-5.1); Alkaline Phosphatase 79 U/L (38-126); Anion Gap 9 mmol/L (8-16); Aspartate Amino Transferase 28 U/L (14-36); Bilirubin,Total 0.2 mg/dL (0.2-1.3); Blood Urea Nitrogen 11 mg/dL (7-17); Calcium 9.7 mg/dL (8.4-10.2); Carbon Dioxide 26 mmol/L (22-30); Chloride 99 mmol/L (98-107); Estimated Glomerular Filt Rate > 60; Glucose 94 mg/dL (65-110); Potassium 4.9 mmol/L (3.4-5.0); Sodium 134 mmol/L (137-145)
[2023-03-22 16:51] LABS: Percent Iron Saturation 21 % (20-50)
[2023-03-22 17:44] LABS: Folic Acid 14.4 ng/mL (2.76->20)
[2023-03-26 07:29] LABS: Methylmalonic Acid 151
== END 2023-03-22 14:12 | disposition home or self-care (01) ==
LOC: ANHLAB 14:13
PROVIDERS: PCP Family Medicine; Visit Provider Internal Medicine Hematology & Oncology
DX: D64.9 Anemia, unspecified (principal)
CPT/HCPCS: 36415; 80053; 82607; 82728; 82746; 83540; 83550; 83921; 85025

== ENCOUNTER 2023-04-24 09:50 | Outpatient (CLI) | payer MEDICARE, SELFPAY ==
--- NOTE | ~2023-04-24 | MM_ITS ---
EXAMINATION: MM screening kiana BI w elle HISTORY: Screening TECHNIQUE: Craniocaudal and mediolateral oblique 3-D tomosynthesis images were obtained and synthetic 2-D images were generated. CAD analysis was submitted and interpreted. COMPARISON: Comparison to multiple prior studies sequentially, with oldest reviewed study dated 04/18. BREAST PARENCHYMAL COMPOSITION: Breast composed of scattered areas of fibroglandular density FINDINGS: There is no evidence of suspicious mass, calcification, or architectural distortion to sugg est malignancy in either breast. There has been no suspicious interval change. IMPRESSION: 1. No mammographic evidence of malignancy. 2. Recommend routine screening mammography in one year. BI-RADS Category 1: Negative Reviewed, dictated and finalized at location A.
== END 2023-04-24 09:51 | disposition home or self-care (01) ==
PROVIDERS: PCP Family Medicine; Visit Provider Family Medicine
DX: Z12.31 Encounter for screening mammogram for malignant neoplasm of breast (principal)
CPT/HCPCS: 77063; 77067

== ENCOUNTER 2023-06-13 12:29 | Outpatient (CLI) | payer MEDICARE, SELFPAY ==
[2023-06-13 19:41] LABS: Basophils Percent Auto 0.2 % (0.2-1.2); Eosinophils Absolute Auto 0.1 K/mm3 (0-0.3); Eosinophils Percent Auto 0.8 % (0-4.4); Hematocrit 36.5 % (37.0-47.0); Hemoglobin 12.2 g/dL (12.0-15.0); Immature Granulocyte Absolute 0.05 K/mm3 (0.00-0.031); Immature Granulocyte Percent A 0.5 % (0-0.5); Lymphocytes Percent Auto 20.1 % (18.3-44.2); Mean Corpuscular HGB Conc 33.4 g/dl (32-36); Mean Corpuscular Hemoglobin 29.5 pg (26-34); Mean Corpuscular Volume 88.4 fl (80-100); Monocytes Percent Auto 9.6 % (2.6-8.5); Neutrophils Absolute Auto 6.8 K/mm3 (1.3-6.7); Neutrophils Percent Auto 68.8 % (45.5-73.1); Platelet Count Result 497 k/mm3 (150-375); Red Blood Count 4.13 M/mm3 (4.2-5.4); Red Cell Distribution Width 12.4 % (11.5-14.5); White Blood Count 9.9 K/mm3 (4.5-10.0)
[2023-06-13 19:54] LABS: Alanine Aminotransferase 16 U/L (6-35); Alkaline Phosphatase 79 U/L (38-126); Anion Gap 11 mmol/L (8-16); Aspartate Amino Transferase 35 U/L (14-36); Bilirubin,Total 0.5 mg/dL (0.2-1.3); Blood Urea Nitrogen 16 mg/dL (7-17); Calcium 10.3 mg/dL (8.4-10.2); Carbon Dioxide 24 mmol/L (22-30); Chloride 91 mmol/L (98-107); Estimated Glomerular Filt Rate > 60; Glucose 109 mg/dL (65-110); Sodium 126 mmol/L (137-145)
== END 2023-06-13 12:30 | disposition home or self-care (01) ==
LOC: ANHGOSHLAB 12:31
PROVIDERS: PCP Family Medicine; Visit Provider Physician Assistant
DX: R42 Dizziness and giddiness (principal); D64.9 Anemia, unspecified
CPT/HCPCS: 36415; 80053; 82728; 83930; 85025

== ENCOUNTER 2023-07-02 10:36 | Outpatient (CLI) | payer MEDICARE, SELFPAY ==
[2023-07-02 11:30] LABS: Basophils Percent Auto 0.4 % (0.2-1.2); Eosinophils Absolute Auto 0.2 K/mm3 (0-0.3); Eosinophils Percent Auto 1.8 % (0-4.4); Hematocrit 33.4 % (37.0-47.0); Hemoglobin 11.3 g/dL (12.0-15.0); Immature Granulocyte Absolute 0.03 K/mm3 (0.00-0.031); Immature Granulocyte Percent A 0.3 % (0-0.5); Lymphocytes Absolute Auto 2.15 K/mm3 (0.9-3.2); Lymphocytes Percent Auto 22.9 % (18.3-44.2); Mean Corpuscular HGB Conc 33.8 g/dl (32-36); Mean Corpuscular Hemoglobin 30.5 pg (26-34); Mean Platelet Volume 8.1 fl (7.4-10.4); Monocytes Absolute Auto 0.6 K/mm3 (0.1-0.6); Monocytes Percent Auto 6.1 % (2.6-8.5); Neutrophils Absolute Auto 6.4 K/mm3 (1.3-6.7); Neutrophils Percent Auto 68.5 % (45.5-73.1); Platelet Count Result 487 k/mm3 (150-375); Red Blood Count 3.71 M/mm3 (4.2-5.4); Red Cell Distribution Width 12.6 % (11.5-14.5); White Blood Count 9.4 K/mm3 (4.5-10.0)
[2023-07-02 16:51] LABS: Iron 162 ug/dL (37-170)
[2023-07-02 17:03] LABS: Percent Iron Saturation 53 % (20-50)
[2023-07-02 18:19] LABS: Anion Gap 11 mmol/L (8-16); Blood Urea Nitrogen 11 mg/dL (7-17); Calcium 10.1 mg/dL (8.4-10.2); Carbon Dioxide 25 mmol/L (22-30); Chloride 100 mmol/L (98-107); Estimated Glomerular Filt Rate > 60; Glucose 91 mg/dL (65-110); Potassium 4.8 mmol/L (3.4-5.0); Sodium 136 mmol/L (137-145)
[2023-07-02 19:31] LABS: Vitamin B12 > 1000.0 pg/mL (239-931)
== END 2023-07-02 10:37 | disposition home or self-care (01) ==
LOC: ANHLAB 10:37
PROVIDERS: PCP Family Medicine; Visit Provider Internal Medicine Hematology & Oncology
DX: D64.9 Anemia, unspecified (principal)
CPT/HCPCS: 36415; 80048; 82607; 82728; 82746; 83540; 83550; 85025

== ENCOUNTER 2023-09-18 14:32 | Outpatient (CLI) | payer MEDICARE, SELFPAY ==
--- NOTE | ~2023-09-18 | DEXA_ITS ---
Bone Density Report Name: MATTHEW MITCHELL Age: 73 Sex: Female Ethnicity: White Date of : 1950 Indication: postmenopausal; screening for osteoporosis; hysterectomy; Referring Provider: MEAGHAN MOBLEY Study: Bone densitometry was performed. Exam Date: September 18, 2023 Accession number: [id number] Bone Density: Region BMD T-score Z-score Classification AP Spine(L1-L4) 1.098 0.5 2.9 Normal Femoral Neck (Left) 0.722 -1.1 0.9 Osteopenia Total Hip (Left) 0.826 -1.0 0.8 Normal Femoral Neck (Right) 0.749 -0.9 1.2 Normal Total Hip (Right) 0.853 -0.7 1.1 Normal Total Hip Mean 0.840 -0.9 1.0 Normal World Health Organization criteria for BMD impression classify patients as: Normal (T-score at or above -1.0), Osteopenia (T-score between -1.0 and -2.5), or Osteoporosis (T-score at or below -2.5). 10-year Fracture Risk(1): Major Osteoporotic Fracture 10% Hip Fracture 1.7% Reported Risk Factors: [place] (), Neck BMD=0.722, BMI=25.2 (1) FRAX(R) Version 3.08. Fracture probability calculated for an untreated patient. Fracture probability may be lower if the patient has received treatment. Clinical Information Provided by Patient: Has the following medical conditions: Hysterectomy Patient maximum height was 59 Menopause Age: 38 No regular weight bearing exercise Drinks caffeinated beverages Onset of menses at age 12 Number of children 3 Impression: The patient has low bone mass, based on the Left Femoral Neck T-score. The patient has an estimated ten-year risk of hip fracture of 1.7% and an estimated ten-year risk of major fracture of 10%, based on the WHO FRAX algorithm. Discussion: BONE DENSITY IS LOW AT ONE OR MORE SKELETAL SITES. This patient's lowest T-score is low at one or more skeletal sites. It meets the World Health Organization's (WHO) criteria for ?low bone mass? (T-score between -1.0 and -2.5). The patient's 10-year risk of fracture as calculated by FRAX is less than the threshold where pharmacological therapy is recommended by the National Osteoporosis Foundation (NOF). However, all treatment decisions require clinical judgment and consideration of individual patient factors, including patient preferences, comorbidities, previous drug use, risk factors not captured in the FRAX model (e.g., frailty, falls, vitamin D deficiency, increased bone turnover, interval significant decline in bone density) and possible under or overestimation of fracture risk by FRAX. The patient should follow a healthful lifestyle (good nutrition with adequate calcium and vitamin D, and appropriate weight-bearing exercise). Follow-Up: Consider repeating this study in 2 to 3 years to reassess this patient's status, or sooner if there is some new clinical indication. Reported by: [facility] on 09/18/2023 2:57:00 PM. Re
== END 2023-09-18 14:33 | disposition home or self-care (01) ==
PROVIDERS: PCP Family Medicine; Visit Provider Family Medicine
DX: Z78.0 Asymptomatic menopausal state (principal); M85.852 Other specified disorders of bone density and structure, left thigh
CPT/HCPCS: 77080

== ENCOUNTER 2023-10-22 10:27 | Outpatient (CLI) | payer MEDICARE, SELFPAY ==
[2023-10-22 10:46] LABS: Basophils Percent Auto 0.3 % (0.2-1.2); Eosinophils Absolute Auto 0.1 K/mm3 (0-0.3); Eosinophils Percent Auto 1.3 % (0-4.4); Hematocrit 33.4 % (37.0-47.0); Hemoglobin 11.2 g/dL (12.0-15.0); Immature Granulocyte Absolute 0.03 K/mm3 (0.00-0.031); Immature Granulocyte Percent A 0.3 % (0-0.5); Lymphocytes Absolute Auto 2.33 K/mm3 (0.9-3.2); Lymphocytes Percent Auto 26.2 % (18.3-44.2); Mean Corpuscular HGB Conc 33.5 g/dl (32-36); Mean Corpuscular Hemoglobin 31.5 pg (26-34); Mean Corpuscular Volume 94.1 fl (80-100); Mean Platelet Volume 8.1 fl (7.4-10.4); Monocytes Absolute Auto 0.7 K/mm3 (0.1-0.6); Monocytes Percent Auto 7.3 % (2.6-8.5); Neutrophils Absolute Auto 5.7 K/mm3 (1.3-6.7); Neutrophils Percent Auto 64.6 % (45.5-73.1); Platelet Count Result 461 k/mm3 (150-375); Red Blood Count 3.55 M/mm3 (4.2-5.4); Red Cell Distribution Width 11.4 % (11.5-14.5); White Blood Count 8.9 K/mm3 (4.5-10.0)
[2023-10-22 14:41] LABS: Iron 83 ug/dL (37-170)
[2023-10-22 14:53] LABS: Percent Iron Saturation 28 % (20-50)
[2023-10-22 15:34] LABS: Folic Acid 17.5 ng/mL (2.76->20); Vitamin B12 > 1000.0 pg/mL (239-931)
== END 2023-10-22 10:28 | disposition home or self-care (01) ==
LOC: ANHLAB 10:29
PROVIDERS: PCP Family Medicine; Visit Provider Internal Medicine Hematology & Oncology
DX: D64.9 Anemia, unspecified (principal)
CPT/HCPCS: 36415; 82607; 82728; 82746; 83540; 83550; 85025

== ENCOUNTER 2024-01-28 10:17 | Outpatient (CLI) | payer MEDICARE, SELFPAY ==
[2024-01-28 12:43] LABS: Alanine Aminotransferase 19 U/L (6-35); Albumin Level 4.8 g/dL (3.5-5.1); Alkaline Phosphatase 82 U/L (38-126); Anion Gap 8 mmol/L (4-12); Aspartate Amino Transferase 42 U/L (14-36); Bilirubin,Total 0.4 mg/dL (0.2-1.3); Blood Urea Nitrogen 18 mg/dL (7-17); Calcium 9.9 mg/dL (8.4-10.2); Carbon Dioxide 25 mmol/L (22-30); Chloride 105 mmol/L (98-107); Cholesterol 182 mg/dL (0-200); Estimated Glomerular Filt Rate > 60; Glucose 98 mg/dL (65-110); HDL Direct 78 mg/dL; Potassium 4.6 mmol/L (3.4-5.0); Sodium 138 mmol/L (137-145); Triglycerides 167 mg/dL (<150)
[2024-01-28 12:53] LABS: LDL Cholesterol Direct 76 mg/dL; Vitamin D 25 Hydroxy 28.6 ng/mL
[2024-01-28 13:20] LABS: Creatinine Urine 87.2 mg/dL
[2024-01-28 13:24] LABS: MALB Creatinine Ratio 17.1 mg/g (0-30); Microalbumin Urine Random 14.9 mg/L (0-16.7)
[2024-01-28 19:06] LABS: Hemoglobin A1C 5.5 % (<5.7)
== END 2024-01-28 10:18 | disposition home or self-care (01) ==
LOC: ANHGOSHLAB 10:18
PROVIDERS: PCP Family Medicine; Visit Provider Family Medicine
DX: R73.03 Prediabetes (principal); Z00.00 Encounter for general adult medical examination without abnormal findings; M85.80 Other specified disorders of bone density and structure, unspecified site; E78.2 Mixed hyperlipidemia
CPT/HCPCS: 36415; 80053; 80061; 82043; 82306; 83036

== ENCOUNTER 2024-02-20 10:02 | Outpatient (CLI) | payer MEDICARE, SELFPAY ==
[2024-02-20 10:17] LABS: Basophils Percent Auto 0.5 % (0.2-1.2); Eosinophils Absolute Auto 0.2 K/mm3 (0-0.3); Eosinophils Percent Auto 2.8 % (0-4.4); Hematocrit 33.3 % (37.0-47.0); Hemoglobin 10.8 g/dL (12.0-15.0); Immature Granulocyte Absolute 0.01 K/mm3 (0.00-0.031); Immature Granulocyte Percent A 0.1 % (0-0.5); Lymphocytes Absolute Auto 2.12 K/mm3 (0.9-3.2); Lymphocytes Percent Auto 28.5 % (18.3-44.2); Mean Corpuscular HGB Conc 32.4 g/dl (32-36); Mean Corpuscular Hemoglobin 30.9 pg (26-34); Mean Corpuscular Volume 95.4 fl (80-100); Monocytes Absolute Auto 0.6 K/mm3 (0.1-0.6); Monocytes Percent Auto 8.2 % (2.6-8.5); Neutrophils Absolute Auto 4.5 K/mm3 (1.3-6.7); Neutrophils Percent Auto 59.9 % (45.5-73.1); Platelet Count Result 407 k/mm3 (150-375); Red Blood Count 3.49 M/mm3 (4.2-5.4); Red Cell Distribution Width 11.9 % (11.5-14.5); White Blood Count 7.5 K/mm3 (4.5-10.0)
[2024-02-20 10:57] LABS: Iron 121 ug/dL (37-170)
[2024-02-20 11:02] LABS: Percent Iron Saturation 47 % (20-50)
[2024-02-20 12:00] LABS: Folic Acid 8.7 ng/mL (2.76->20); Vitamin B12 > 1000.0 pg/mL (239-931)
== END 2024-02-20 10:03 | disposition home or self-care (01) ==
LOC: ANHLAB 10:03
PROVIDERS: PCP Family Medicine; Visit Provider Internal Medicine Hematology & Oncology
DX: D64.9 Anemia, unspecified (principal)
CPT/HCPCS: 36415; 82607; 82728; 82746; 83540; 83550; 85025

== ENCOUNTER 2024-04-15 15:01 | Outpatient (CLI) | payer MEDICARE, SELFPAY ==
--- NOTE | ~2024-04-15 | XR_ITS ---
3 VIEWS LUMBAR SPINE Ordering provider: Maria Del Rosario Hay MD History: . fall 2 months ago lbp with right hip pain . Comparison: None. FINDINGS: VERTEBRAL BODIES: No visible fracture or subluxation. Degenerative changes of the spine. DISK SPACES: Narrowing of the disc L2-L3, L3-L4 and L4-L5. Facet degenerative disease at the level of L4-L5 and L5-S1. SOFT TISSUES: Normal. Vascular calcifications. IMPRESSION: No acute osseous abnormality lumbar spine. Reviewed, dictated and finalized at location A.
--- NOTE | ~2024-04-15 | XR_ITS ---
XR hip RT 2V w AP pelvis Ordering provider: Maria Del Rosario Hay MD History: . fall 2 months ago lbp with right hip pain . Comparison: None. FINDINGS: BONES: No acute fracture or dislocation. HIP JOINT SPACES: Bilateral hip moderate osteoarthritic changes. SACROILIAC JOINT SPACES/LUMBAR SPINE: The sacroiliac joint spaces shows bilateral sacroiliitis with h ighly suggestive fusion the right is. Mild degenerative changes of the visualized lower lumbar spine. PUBIC SYMPHYSIS: Normal. SOFT TISSUES: Vascular calcifications. IMPRESSION: No acute osseous abnormality pelvis and right hip. Reviewed, dictated and finalized at location A.
== END 2024-04-15 15:02 | disposition home or self-care (01) ==
PROVIDERS: PCP Family Medicine; Visit Provider Family Medicine
DX: M54.50 Low back pain, unspecified (principal); M25.551 Pain in right hip
CPT/HCPCS: 72110; 73502

== ENCOUNTER 2024-06-11 10:45 | Outpatient (CLI) | payer MEDICARE, SELFPAY ==
[2024-06-11 21:13] LABS: Alanine Aminotransferase 14 U/L (6-35); Albumin Level 4.4 g/dL (3.5-5.1); Alkaline Phosphatase 74 U/L (38-126); Anion Gap 7 mmol/L (4-12); Aspartate Amino Transferase 24 U/L (14-36); Bilirubin,Total 0.5 mg/dL (0.2-1.3); Blood Urea Nitrogen 11 mg/dL (7-17); Calcium 9.7 mg/dL (8.4-10.2); Carbon Dioxide 28 mmol/L (22-30); Chloride 101 mmol/L (98-107); Cholesterol 188 mg/dL (0-200); Estimated Glomerular Filt Rate > 60; Glucose 102 mg/dL (65-110); HDL Direct 84 mg/dL; Potassium 4.8 mmol/L (3.4-5.0); Sodium 136 mmol/L (137-145); Triglycerides 181 mg/dL (<150)
[2024-06-11 21:24] LABS: LDL Cholesterol Direct 58 mg/dL
[2024-06-11 21:43] LABS: Creatinine Urine 117.4 mg/dL
[2024-06-11 21:47] LABS: MALB Creatinine Ratio 27.8 mg/g (0-30); Microalbumin Urine Random 32.6 mg/L (0-16.7)
[2024-06-11 23:21] LABS: Hemoglobin A1C 6.1 % (<5.7)
== END 2024-06-11 10:46 | disposition home or self-care (01) ==
LOC: ANHGOSHLAB 10:46
PROVIDERS: PCP Family Medicine; Visit Provider Family Medicine
DX: R73.03 Prediabetes (principal); I10 Essential (primary) hypertension; Z78.0 Asymptomatic menopausal state
CPT/HCPCS: 36415; 80053; 80061; 82043; 83036

== ENCOUNTER 2024-07-09 10:44 | Outpatient (CLI) | payer MEDICARE, SELFPAY ==
[2024-07-09 11:13] LABS: Basophils Percent Auto 0.5 % (0.2-1.2); Eosinophils Absolute Auto 0.1 K/mm3 (0-0.3); Eosinophils Percent Auto 1.1 % (0-4.4); Hematocrit 35.7 % (37.0-47.0); Hemoglobin 11.9 g/dL (12.0-15.0); Immature Granulocyte Absolute 0.04 K/mm3 (0.00-0.031); Immature Granulocyte Percent A 0.5 % (0-0.5); Lymphocytes Absolute Auto 2.01 K/mm3 (0.9-3.2); Lymphocytes Percent Auto 23.6 % (18.3-44.2); Mean Corpuscular HGB Conc 33.3 g/dl (32-36); Mean Corpuscular Hemoglobin 31.2 pg (26-34); Mean Corpuscular Volume 93.7 fl (80-100); Mean Platelet Volume 8.3 fl (7.4-10.4); Monocytes Absolute Auto 0.5 K/mm3 (0.1-0.6); Monocytes Percent Auto 6.3 % (2.6-8.5); Neutrophils Absolute Auto 5.8 K/mm3 (1.3-6.7); Platelet Count Result 472 k/mm3 (150-375); Red Blood Count 3.81 M/mm3 (4.2-5.4); Red Cell Distribution Width 11.9 % (11.5-14.5); White Blood Count 8.5 K/mm3 (4.5-10.0)
[2024-07-09 19:38] LABS: Iron 81 ug/dL (37-170)
[2024-07-09 19:48] LABS: Percent Iron Saturation 26 % (20-50)
[2024-07-09 20:13] LABS: Alanine Aminotransferase 14 U/L (6-35); Albumin Level 4.8 g/dL (3.5-5.1); Alkaline Phosphatase 76 U/L (38-126); Anion Gap 8 mmol/L (4-12); Aspartate Amino Transferase 29 U/L (14-36); Bilirubin,Total 0.5 mg/dL (0.2-1.3); Blood Urea Nitrogen 10 mg/dL (7-17); Calcium 9.7 mg/dL (8.4-10.2); Carbon Dioxide 27 mmol/L (22-30); Chloride 102 mmol/L (98-107); Estimated Glomerular Filt Rate > 60; Glucose 91 mg/dL (65-110); Potassium 4.9 mmol/L (3.4-5.0); Sodium 137 mmol/L (137-145)
== END 2024-07-09 10:45 | disposition home or self-care (01) ==
LOC: ANHLAB 10:45
PROVIDERS: PCP Family Medicine; Visit Provider Internal Medicine Hematology & Oncology
DX: D64.9 Anemia, unspecified (principal)
CPT/HCPCS: 36415; 80053; 82607; 82728; 82746; 83540; 83550; 85025

== ENCOUNTER 2024-10-15 10:46 | Outpatient (CLI) | payer MEDICARE, SELFPAY ==
--- OUTSIDE RECORDS SUMMARY | 2024-10-15 12:20 | XMS_ITS | Clinical Summary ---
Author Organization [facility] [address] [place] Address [address] [place] [address] Care Team Providers Care Metal Fabricator Welder Name Role Phone Maria Del Rosario Hay MD Primary Care Provider Allergies Active Allergy Reactions Criticality Noted Date Comments Sulfa (Sulfonamide Antibiotics) Other (See Comments) 03/22/2023 Not sure what reactions from it has been so long ago Medications milnacipran (Savella) 50 mg tablet Take 50 mg by mouth. Active rosuvastatin (CRESTOR) 5 mg tablet Take 5 mg by mouth daily. Active metFORMIN (GLUCOPHAGE XR) 500 mg Extended Release 24 hour tablet Take 500 mg by mouth daily. Active aspirin (DEVORAH CHEWABLE) 81 mg Tablet, Chewable Take 81 mg by mouth daily. Active acetaminophen (TYLENOL ARTHRITIS) 650 mg Extended Release tablet Take 650 mg by mouth every 6 hours as needed for Pain. Active cyanocobalamin 1,000 mcg Tablet Take 1,000 mcg by mouth daily. Active calcium citrate-vitamin d3 (CITRACAL D MAX) 315 mg-6.25 mcg (250 unit) Tablet Take 1 Tablet by mouth daily. Active omeprazole (PriLOSEC) 40 mg Capsule, Delayed Release(E.C.) Take 40 mg by mouth daily. 06/25/2023 Active trandolapriL (MAVIK) 2 mg Tablet Take 1 Tablet by mouth daily. 06/25/2024 Active Active Problems No known active problems Encounters Date Type Department Care Team Description 10/11/2024 External Device Data ST[facility] ABSTRACTION Provider, Abstract 10/10/2024 External Device Data [facility] ABSTRACTION Provider, Abstract 10/07/2024 External Device Data [facility] ABSTRACTION Provider, Abstract 09/23/2024 External Device Data [facility] ABSTRACTION Provider, Abstract 08/28/2024 External Device Data [facility] ABSTRACTION Provider, Abstract 08/27/2024 External Device Data [facility] ABSTRACTION Provider, Abstract 08/26/2024 External Device Data [facility] ABSTRACTION Provider, Abstract 08/19/2024 External Device Data [facility] ABSTRACTION Provider, Abstract from Last 3 Months Family History Relation Name Status Comments Daughter Alive Father Mother Son 1 Son 2 Social History Tobacco Use Types Packs/Day Years Used Date Smoking Tobacco: Never Smokeless Tobacco: Never Tobacco Cessation:Counseling Given: Not Answered Alcohol Use Standard Drinks/Week Comments Never 0 (1 standard drink = 0.6 oz pur e alcohol) Comments Unknown Sex and Gender Information Value Date Recorded Sex Assigned at Not on file Legal Sex Female 3:15 PM CDT Gender Identity Not on file Sexual Orientation Not on file Last Filed Vital Signs Vital Sign Reading Time Taken Comments Blood Pressure 152/77 07/15/2024 3:22 PM SUPERVISOR ENGINE REPAIR Pulse 79 07/15/2024 3:22 PM SUPERVISOR ENGINE REPAIR Temperature 36.4 C (97.6 F) 07/15/2024 3:22 PM SUPERVISOR ENGINE REPAIR Respiratory Rate 16 07/15/2024 3:22 PM SUPERVISOR ENGINE REPAIR Oxygen Saturation 94% 07/15/2024 3:22 PM SUPERVISOR ENGINE REPAIR Inhaled Oxygen Concentration - - Weight 56.7 kg (125 lb) 07/15/2024 3:22 PM SUPERVISOR ENGINE REPAIR Height 149.9 cm (4' 11 ) 03/22/2023 1:21 PM CDT Body Mass Index 25.25 03/22/2023 1:21 PM CDT Plan of Treatment Upcoming Encounters Date Type Department Care Team (Late st Contact Info) Description 12/10/2024 3:30 PM CDT Office Visit [facility] Oncology and Hematology - [address] [facility] [address] [place] [address] Marty Valencia MD [address] [facility] [address] [place] [address] Health Maintenance Due Date Last Done Comments DTAP/TDAP/TD VACCINES (1 - Tdap) 1967 PNEUMOCOCCAL VACCINE 50+ YEARS (1 of 1 - PCV) 06/16/19 98 ZOSTER VACCINE (1 of 2) 1998 RSV VACCINE (60+ or ) (1 - 1-dose 75+ series) 2023 INFLUENZA VACCINE (#1) 2024 Medicare Advantage ([place]) Prev entative Visit/Annual Wellness Visit 08/06/2024 OSTEOPOROSIS SCREENING Completed 04/06/2016 [facility] [id number] Member Subscriber Plan / Payer (Ef fective 2022-Present) Name:Gem Hearn Relation to Subscriber:Self Name:Gem Hearn Payer ID:[id number] (NAIC) Type:PPO Address: [place] [id number] Care Teams Metal Fabricator Welder Relationship Specialty Start Date End Date Maria Dle Rosario Hay MD [facility] [address] [place] [phone] PCP - General Family Practice 03/22/23
--- OUTSIDE RECORDS SUMMARY | 2024-10-15 12:20 | XMS_ITS | Referral Summary ---
Author Organization [facility] [address] Address [address] [place] [address] Care Team Providers Care Enamel Applier Name Role Phone Maria Del Rosario Hay MD Primary Care Provider + Allergies Active Allergy Reactions Criticality Noted Date Comments Sulfa (Sulfonamide Antibiotics) Unknown 12/04 Social History Tobacco Use Types Packs/Day Years Used Date Smoking Tobacco: Never Assessed Personal Safety Answer Date Recorded Getting School Help Needed Not on file 10/19 Comments Unknown Sex and Gender Information Value Date Recorded Sex Assigned at Not on file Legal Sex Female 11:54 PM HISTORIC SITE ADMINISTRATOR Gender Identity Not on file Sexual Orientation Not on file Plan of Treatment Not on file Insurance MEDICARE GROUP [facility] Care Teams Enamel Applier Relationship Specialty Start Date End Date Maria Del Rosario Hay MD PCP - General Family Medicine 12/13/18
--- OUTSIDE RECORDS SUMMARY | 2024-10-15 12:20 | XMS_ITS | Clinical Summary ---
Author Organization [facility] [address] Address [address] [place] [address] Care Team Providers Care Hardwood Floor Installation Helper Name Role Phone Maria Del Rosario Hay [...] on file Legal Sex Female 11:54 PM DELIVERY RN Gender Identity Not on file Sexual Orientation Not on file Plan of Treatment Not on file Insurance MEDICARE GROUP [facility] [place] [facility] Care Teams Hardwood Floor Installation Helper Relationship Specialty Start Date End Date Maria Del Rosario Hay MD PCP - General Family Medicine 12/13/18
[2024-10-15 13:31] LABS: Hemoglobin A1C 5.9 % (<5.7)
[2024-10-15 13:51] LABS: Vitamin D 25 Hydroxy 35.4 ng/mL
[2024-10-15 14:03] LABS: Alanine Aminotransferase 18 U/L (6-35); Albumin Level 4.5 g/dL (3.5-5.1); Alkaline Phosphatase 71 U/L (38-126); Anion Gap 9 mmol/L (4-12); Aspartate Amino Transferase 50 U/L (14-36); Bilirubin,Total 0.4 mg/dL (0.2-1.3); Blood Urea Nitrogen 11 mg/dL (7-17); Calcium 9.8 mg/dL (8.4-10.2); Carbon Dioxide 29 mmol/L (22-30); Chloride 99 mmol/L (98-107); Cholesterol 164 mg/dL (0-200); Estimated Glomerular Filt Rate > 60; Glucose 98 mg/dL (65-110); HDL Direct 76 mg/dL; Potassium 4.8 mmol/L (3.4-5.0); Sodium 137 mmol/L (137-145); Triglycerides 172 mg/dL (<150)
[2024-10-15 14:14] LABS: LDL Cholesterol Direct 46 mg/dL
[2024-10-15 14:41] LABS: Creatinine Urine 93.3 mg/dL
[2024-10-15 14:43] LABS: Microalbumin Urine Random 16.8 mg/L (0-16.7)
== END 2024-10-15 10:47 | disposition home or self-care (01) ==
PROVIDERS: PCP Family Medicine; Visit Provider Family Medicine
DX: R73.03 Prediabetes (principal); I10 Essential (primary) hypertension; Z78.0 Asymptomatic menopausal state
CPT/HCPCS: 36415; 80053; 80061; 82043; 82306; 83036

== ENCOUNTER 2024-12-04 11:45 | Outpatient (CLI) | payer MEDICARE, SELFPAY ==
[2024-12-04 11:59] LABS: Basophils Percent Auto 0.3 % (0.2-1.2); Eosinophils Absolute Auto 0.2 K/mm3 (0-0.3); Eosinophils Percent Auto 1.5 % (0-4.4); Hematocrit 34.3 % (37.0-47.0); Hemoglobin 11.4 g/dL (12.0-15.0); Immature Granulocyte Absolute 0.05 K/mm3 (0.00-0.031); Immature Granulocyte Percent A 0.5 % (0-0.5); Lymphocytes Absolute Auto 2.56 K/mm3 (0.9-3.2); Lymphocytes Percent Auto 25.4 % (18.3-44.2); Mean Corpuscular HGB Conc 33.2 g/dl (32-36); Mean Corpuscular Hemoglobin 30.3 pg (26-34); Mean Corpuscular Volume 91.2 fl (80-100); Mean Platelet Volume 8.1 fl (7.4-10.4); Monocytes Absolute Auto 0.8 K/mm3 (0.1-0.6); Monocytes Percent Auto 7.7 % (2.6-8.5); Neutrophils Absolute Auto 6.5 K/mm3 (1.3-6.7); Neutrophils Percent Auto 64.6 % (45.5-73.1); Platelet Count Result 429 k/mm3 (150-375); Red Blood Count 3.76 M/mm3 (4.2-5.4); Red Cell Distribution Width 11.9 % (11.5-14.5); White Blood Count 10.1 K/mm3 (4.5-10.0)
[2024-12-04 13:39] LABS: Iron 84 ug/dL (37-170)
[2024-12-04 13:42] LABS: Percent Iron Saturation 28 % (20-50)
[2024-12-04 15:06] LABS: Folic Acid 8.5 ng/mL (2.76->20)
== END 2024-12-04 11:46 | disposition home or self-care (01) ==
PROVIDERS: PCP Family Medicine; Visit Provider Internal Medicine Hematology & Oncology
DX: D64.9 Anemia, unspecified (principal)
CPT/HCPCS: 36415; 82607; 82728; 82746; 83540; 83550; 85025